=== PATIENT | male | born 1955 | race Caucasian/White ===

== ENCOUNTER → 2016-12-03 | Outpatient (CLI) | payer OTHER | LOC: CPPFTMAIN 12:58 | PROVIDERS: ATTEND Internal Medicine Cardiovascular Disease | DX: R06.02 Shortness of breath (principal) | CPT/HCPCS: 94060; 94726; 94729 ==

== ENCOUNTER → 2016-12-12 | Outpatient (CLI) | payer OTHER ==
--- NOTE | 2016-12-12 19:59 | CONS ---
DATE OF CONSULTATION: 12/12/2016 This patient is a 61-year-old gentleman who has been evaluated in the sleep center for possible obstructive sleep apnea-hypopnea syndrome. HISTORY OF PRESENT ILLNESS/SLEEP-WAKE EVALUATION: Patient's usual sleep schedule on working days is from around 8 p.m. until 5 a.m. On weekends it is from around 9 or 10 p.m. until 8 or 8:30 a.m. Sometimes he has problems with falling asleep. He has snoring and awakenings from sleep up to 3 times with 1 or 2 episodes of nocturia. Sometimes he grinds his teeth and may feel episodes of palpitations. [place] Sleepiness Scale is 6. Past medical history is positive for: 1. Episodes of atrial flutter in August of 2016, converted to normal sinus rhythm. 2. Hypertension. 3. Back problems. 4. Mitral valve problems. 5. History of multiple episodes of tonsillitis fewer and rheumatic fever in childhood. 6. Cardiac catheterization recently showed obstruction of some coronary arteries down to around 20%. 7. Back pain, shoulder pain, neck pain. PAST SURGICAL HISTORY: 1. Hemorrhoidectomy. 2. Shots in the back. 3. Right knee surgery. 4. Cardiac catheterization. MEDICATIONS: 1. Tramadol. 2. Metoprolol. 3. Warfarin. 4. Diovan. SOCIAL HISTORY: Negative for smoking. Alcohol consumption rarely. FAMILY HISTORY: Hypertension, heart problems, stroke, arthritis, snoring, cancer, acid reflux, numbness in hands. REVIEW OF SYSTEMS: Awakenings from sleep. No fevers. No double vision. No recent chest pain. No shortness of breath. No abdominal pain. No bleeding episodes. No blood in urine. No seizure episodes. PHYSICAL EXAMINATION: GENERAL: A pleasant 61-year-old gentleman without distress. VITAL SIGNS: BP 112/54, HR 56, RR 16. Height 5 feet 7-1/2 inches. Weight 190. BMI 29.3. Neck 15-1/2 inches in circumference. Temperature 97.9. Oxygen saturation at room air 97%. HEENT: PERRLA, EOMI. Evaluation of oropharynx showed tongue protrudes midline; practically normal position of soft palate vertically, but horizontally very short distance between soft palate and pharyngeal wall. NECK: Supple. No JVD. Thyroid is not palpable. LUNGS: Clear to percussion and to auscultation. Good air exchange. No wheezing or rhonchi. HEART: S1, S2 regular. No murmurs, gallops or rubs. ABDOMEN: Soft and nontender. Bowel sounds are present. No organomegaly appreciated. EXTREMITIES: No clubbing or cyanosis. SPEECH CORRECTION CONSULTANT: Awake, alert, and oriented x3. Cranial nerves 2 to 7 intact. There is no fasciculation or atrophy noted. No focal deficits observed. IMPRESSION: 1. Multiple awakenings from sleep, snoring, short distance between soft palate and pharyngeal wall; possible obstructive sleep apnea-hypopnea syndrome. 2. History of atrial flutter converted to normal sinus rhythm. 3. History of mitral valve problem secondary to possible rheumatoid fever by history. 4. Hypertension. 5. Back problems. 6. Neck pain. 7. Shoulder pain. 8. Status post right knee surgery. 9. Status post hemorrhoidectomy. 10. Narrowing of some coronary arteries down to around 20% by results of cardiac catheterization. PLAN: 1. Polysomnography for evaluation of patient's breathing during sleep. 2. CPAP/BiPAP titration if sleep study confirms obstructive sleep apnea-hypopnea syndrome. 3. Preferable position during sleep on the side. 4. No driving if patient feels any sleepiness. Patient is aware of civil and criminal liability for unsafe driving. 5. I will see patient for follow-up visit to explain results of the testing and following plan. Thank you very much for referring this patient for consultation. Sincerely, Vinny Moore MD, PhD, FAASM. Diplomat of [place] [employer], Sleep Medicine Board by [place] [employer] [place] [employer] Industrial Hygiene Technician of [facility] [place]
== END ==
LOC: SLEEP 15:03
PROVIDERS: ATTEND Internal Medicine
DX: R35.1 Nocturia (principal); I10 Essential (primary) hypertension; I25.10 Atherosclerotic heart disease of native coronary artery without angina pectoris; I48.92 Unspecified atrial flutter; Z98.890 Other specified postprocedural states; Z90.49 Acquired absence of other specified parts of digestive tract; Z79.01 Long term (current) use of anticoagulants; Z79.899 Other long term (current) drug therapy
CPT/HCPCS: 99211

== ENCOUNTER → 2019-06-03 | Outpatient (CLI) | payer OTHER | END | disposition home or self-care (01) | LOC: RADMRIMAIN 16:03 | PROVIDERS: ATTEND Orthopaedic Surgery Sports Medicine | DX: Z53.9 Procedure and treatment not carried out, unspecified reason (principal) ==